=== PATIENT | female | born 1995 | race Two or more races ===

== ENCOUNTER 2025-01-18 10:37 | Emergency (ER) | payer BC ==
[~2025-01-18] VITALS: Ht 154.9 cm; Wt 63.5 kg
[2025-01-18] MEDS ORDERED: PANTOPRAZOLE 40 MG VIAL ONE (11:07)
[2025-01-18] MEDS ORDERED: ONDANSETRON HCL/PF 4 MG/2 ML VIAL ONE (11:07)
[2025-01-18] MEDS: PANTOPRAZOLE 40 MG VIAL IV ONE (11:23)
[2025-01-18] MEDS: IV NS 0.9% 1,000 ML BAG IV ONE (11:23)
[2025-01-18] MEDS: ONDANSETRON HCL/PF 4 MG/2 ML VIAL IVP ONE (11:23)
[2025-01-18 11:35] LABS: BASOPHILS % (AUTO) 0.1 % (0.0-2.0); EOSINOPHILS % (AUTO) 0.1 % (0.0-6.0); HEMATOCRIT 40 % (33-45); HEMOGLOBIN 13.6 g/dL (11.5-14.8); LYMPHOCYTES # (AUTO) 0.7 K/uL (0.8-4.8); LYMPHOCYTES % (AUTO) 10.4 % (20.0-44.0); MEAN CORPUSCULAR HEMOGLOBIN 30 PG (26.0-33.0); MEAN CORPUSCULAR HGB CONC 34 g/dl (31.0-36.0); MEAN CORPUSCULAR VOLUME 89 fL (82-100); MONOCYTES # (AUTO) 0.3 K/uL (0.1-1.30); MONOCYTES % (AUTO) 5.1 % (2.0-12.0); NEUTROPHILS # (AUTO) 5.7 K/uL (1.8-8.9); NEUTROPHILS % (AUTO) 84.3 % (43.0-81.0); PLATELET COUNT (AUTO) 288 K/uL (150-450); RED BLOOD CELL COUNT(AUTO) 4.47 MIL/uL (4.0-5.2); RED CELL DISTRIBUTION WIDTH 13.4 % (11.5-15.0); WHITE BLOOD COUNT (AUTO) 6.8 K/uL (4.3-11.0)
[2025-01-18 11:41] LABS: ALBUMIN 3.7 g/dL (3.4-5.0); BILIRUBIN,DIRECT 0.1 mg/dL (0.0-0.2); BILIRUBIN,TOTAL 0.4 mg/dL (0.2-1.0); CREATININE 0.6 mg/dL (0.6-1.3); POTASSIUM 4.3 mmol/L (3.5-5.1)
[2025-01-18] MEDS ORDERED: ONDA4TAB5 PO (12:09)
[2025-01-18 12:34] VITALS: BP 121/83; TEMP 98.6; O2SAT 99
== END 2025-01-18 12:35 | disposition home or self-care (01) ==
LOC: ER 10:47
DX: R10.13 Epigastric pain (principal); T36.3X5A Adverse effect of macrolides, initial encounter; R11.2 Nausea with vomiting, unspecified; Y92.9 Unspecified place or not applicable; Z88.0 Allergy status to penicillin
CPT/HCPCS: 99285; 96374; 76705; 96361; 96375; 85025; 80048; 83690; 80076; 36415; J2405; J7030; J2470